=== PATIENT | male | born 1970 | race Caucasian/White ===

== ENCOUNTER 2016-08-20 16:16 | Outpatient (CLI) | payer MEDICARE ==
[~2016-08-20] VITALS: Ht 180.3 cm; Wt 158.2 kg
--- NOTE | ~2016-08-20 | HEMODYNAMI ---
PATIENT:ERA MILLER MEDICAL RECORD: [id number] : 66 [id number] ADMISSION DATE: 08/20/16 Generatedon:08/21/201616:48 Patient name: ERA MILLER Patient #: [id number] : 1970 Date of study: 08/21/2016 Page: Of Hemodynamic Procedure Report Patient Data Patient Demographics Procedure consent was obtained First Name: ERA Gender: Male Last Name: ANGELA : 1970 Patient #: [id number] Age: 46 year(s) Race: Unknown SSN: [id number] Additional ID: [id number] Contact details [address]: [address] [place] [address] State: [place] City: [place] Zip code: [address] Past Medical History Allergies: No known allergies Admission Admission Data Admission Date: 08/20/2016 Admission Time: 17:04 Arrival Date: 08/21/2016 Arrival Time: 0:00 Admit Source: Other Insurance Payor: Medicare Room #: D.2114 Height (in.): 70.87 BSA: 2.68 (m2) Height (cm.): 180 BMI: 49.56 (kg/m2) Weight (lbs.): 354 Weight (kg.): 160.57 Lab Results Lab Result Date: 08/21/2016 Lab Result Time: 0:00 Biochemistry Name Units Result Min Max BUN mg/dl 13 --(--*-)-- 7 18 Creatinine mg/dl 1.1 --(--*-)-- 0.6 1.3 CBC Name Units Result Min Max Hemoglobin g/dl 16.1 --(--*-)-- 13.5 17.5 Procedure Procedure Types Cath Procedure Diagnostic Procedure LHC LH w/Coronaries PCI Procedure Coronary Stent Initial Miscellaneous Procedures Moderate Sedation up to 30 minutes Procedure Description Procedure Date Procedure Date: 08/21/2016 Procedure Start Time: 16:29 Procedure End Time: 16:48 Procedure Staff Name Function Sloan Griffin MD Performing Physician Ozzy Franco RT Scrub Sharad Zhao RN Nurse Melody Post RT Monitor Claudette Christensen RT Monitor Procedure Data Cath Procedure Fluoroscopy Diagnostic fluoroscopy Total fluoroscopy Time: 2.4 time: 2.4 min min Diagnostic fluoroscopy Total fluoroscopy dose: 813 dose: 813 mGy mGy Contrast Material Contrast Material Type Amount (ml) Isovue 300 81 Entry Location Entry Primary Successful Side Size Upsize Upsize Entry Closure Venegas ccessful Closure Location (Fr) 1 (Fr) 2 (Fr) Remarks Device Remarks Femoral Right 5 Fr 6 Fr Mechanical artery Short Compression Estimated blood loss: 10 ml Diagnostic catheters Device Type Used For End Catheter Placement Cordis 5Fr Pigtail LV Angiography Catheter (MP) Cordis 5Fr JL 4.0 Left Coronary Catheter (MP) Angiography Cordis 5Fr 3DRC Catheter Right Coronary (MP) Angiography Procedure Complications No complications Procedure Medications Medication Administration Route Dosage Oxygen NC 2 l/min Lidocaine 2% added to field 20 Heparin Flush Bag added to field 2 bags (1000units/500ml NS) 0.9% NaCl I.V. 100 ml/hr Versed I.V. 1 mg Fentanyl I.V. 50 mcg Versed I.V. 1 mg Fentanyl I.V. 50 mcg Versed I.V. 1 mg Fentanyl I.V. 50 mcg Heparin Bolus I.V. 4000 units Versed I.V. 1 mg Fentanyl I.V. 50 mcg Plavix P.O. 75 mg Hemodynamics Rest BSA: 2.68 (m2) HGB: 16.1 (g/dl) O2 Consumption: Estimated: 320.26 (ml/min) O2 Co nsumption indexed: Estimated:119.5 (ml/min/m) Heart Rate: 68 (bpm) Snapshots Pre Cath Intra NCS Post Cath Vital Signs Time Heart Resp SPO2 NIBP Rhythm Pain Sedation Rate (ipm) (%) (mmHg) Status Level (bpm) 16:14:31 69 17 94 109/67(85) NSR 0 (11) 10(A) , No pain 16:18:50 67 17 94 109/62(82) NSR 0 (11) 10(A) , No pain 16:23:09 67 15 95 105/67(86) NSR 0 (11) 10(A) , No pain 16:27:27 67 16 96 105/55(84) NSR 0 (11) 9(A) , No pain 16:31:47 55 15 98 95/59(73) NSR 0 (11) 9(A) , No pain 16:36:01 68 16 96 99/63(81) NSR 0 (11) 9(A) , No pain 16:40:15 66 16 96 85/57(78) NSR 0 (11) 9(A) , No pain 16:44:29 66 15 95 91/48(75) NSR 0 (11) 10(A) , No pain Medications Time Medication Route Dose Verified Delivered Reason Notes Effectiveness by by 16:13:40 Oxygen NC 2 Sloan Buffie used for l/min Gaby Zhao RN procedure 16:13:47 Lidocaine 2% added 20ml Sloan Sloan for local to vial Gaby Grififn MD anesthetic field 16:13:54 Heparin Flush added 2 Sloan Sloan used for Bag to bags Gaby Griffin MD procedure (1000units/500ml field NS) 16:14:04 0.9% NaCl I.V. 100 Sloan Buffie Per physician ml/hr Gaby Zhao RN 16:24:28 Versed I.V. 1 mg Sloan Buffie for sedation Gaby Zhao RN 16:24:33 Fentanyl I.V. 50 Sloan Buffie for sedation mcg Gaby Zhao RN 16:28:45 Versed I.V. 1 mg Sloan Buffie for sedation Gaby Zhao RN 16:28:49 Fentanyl I.V. 50 Sloan Buffie for sedation mcg Gaby Zhao RN 16:32:07 Versed I.V. 1 mg Sloan Buffie for sedation Gaby Zhao RN 16:32:11 Fentanyl I.V. 50 Sloan Buffie for sedation mcg Gaby Zhao RN 16:36:34 Heparin Bolus I.V. 4000 Sloan Buffie for verifi ed units Gaby Zhao RN anticoagulation with dr griffin 16:40:42 Versed I.V. 1 mg Sloan Buffie for sedation Gaby Zhao RN 16:40:47 Fentanyl I.V. 50 Sloan Buffie for sedation mcg Gaby Zhao RN 16:45:18 Plavix P.O. 75 mg Sloan Buffie for Tauth MD Zhao RN antiplatelet therapy Procedure Log Time Note 15:48:03 Arrival Date: 08/21/2016 12:00:00 AM 15:48:05 Admit Source: Other 15:49:21 Lab Result : Creatinine 1.1 mg/dl 15:49:21 Lab Result : BUN 13 mg/dl 15:49:21 Lab Result : Hemoglobin 16.1 g/dl 15:49:30 Diagnostic Cath Status : Elective 15:50:00 Ozzy Franco RT(R) (CV) sent for patient. Start room use. 15:50:02 Time tracking: Regular hours 15:50:07 Plan of Care:Hemodynamics will remain stable., Cardiac rhythm will remain stable., Comfort level will be maintained., Respiratory function will remain adequate., Patient/ family verbilizes understanding of procedure., Procedure tolerated without complication., Recovers from procedure without complications.. 15:50:17 Patient received from Med II to CCL 2 Alert and oriented. Tansferred to table in Supine position. 15:50:35 H&P Date Dictated: 08/20/2016 Within 30 days and on chart.. 15:51:56 Patient Height : 180 inches 15:52:15 Patient Weight : 160.57 lbs 15:52:15 Insurance Payor : Medicare 16:00:01 Warm blankets applied, and mark hugger turned on for patient comfort. 16:00:02 Correct patient and procedure confirmed by team. 16:00:05 Signed procedure consent form obtained from patient. 16:00:10 Pre-procedure instructions explained to patient. 16:00:23 Family in patients room. 16:00:26 Patient NPO since Midnight. 16:00:55 Patient allergic to No known allergies 16:00:58 Is the patient allergic to Iodine/contrast media? No. 16:01:06 Is patient on blood thinner?Yes 16:01:09 ACC The patient was administered the following blood thiners within the last 24 hours: ACCPlavix 16:01:13 Patient diabetic? Yes. 16:01:15 If diabetic: On Metformin? No 16:01:19 Snore? Yes 16:01:35 Sleep apnea? Yes 16:01:47 Dentures? Yes iout 16:02:02 Patient pain scale 0/10 ?. 16:02:14 IV patent on arrival in right hand with 0.9% NaCl at KVO. 16:02:22 Lab results completed and on chart. 16:02:27 Right Radial & Right Groin area was prepped with chlora-prep and draped in sterile fashion 16::29 Alarms reviewed by R. N. 16:02:29 Sharps counted by scrub and verified by R.N. 16:03:08 Physician arrived 16:07:25 ECG and BP/O2 sat monitors applied to patient. 16:07:29 Vital chart was started 16:07:30 Baseline sample Acquired. 16:07:38 Rhythm: sinus rhythm 16:07:39 Full Disclosure recording started 16:13:40 Oxygen 2 l/min NC was given by Sharad Zhao RN; used for procedure; 16:13:47 Lidocaine 2% 20ml vial added to field was given by Sloan Griffin MD; for local anesthetic; 16:13:54 Heparin Flush Bag (1000units/500ml NS) 2 bags added to field was given by Sloan Griffin MD; used for procedure; 16:14:04 0.9% NaCl 100 ml/hr I.V. was given by Sharad Zhao RN; Per physician; 16:15:45 Use device set Femoral Dx 16:15:46 Acist Syringe opened to sterile field. 16:15:46 Bag Decanter opened to sterile field. 16:15:47 Medline Cath Pack opened to sterile field. 16:15:47 Terumo 5Fr Rittman Sheath opened to sterile field. 16:15:48 St Sotero 260cm J .035 wire opened to sterile field. 16:15:49 Acist Hand Control opened to sterile field. 16:15:49 Acist Manifold opened to sterile field. 16:15:50 Diagnostic Infinity 5Fr Multipack catheter opened to sterile field. 16:15:50 Tegaderm 4 x 4 opened to sterile field. 16:16:09 Previous problem with sedation/anesthesia? No ? 16:16:11 Deviated septum? No 16:16:11 Opens mouth fully? Yes 16:16:12 Sticks out tongue? Yes 16:16:14 Airway obstruction? No ? 16:16:17 Pre procedure: right dorsailis pedis pulse 2+ Normal; easily identifiable; not easily obliterated 16:16:57 Melody Post RT(R) was relieved by Claudette Christensen RT(R) as monitoring person 16:20:47 Zero performed for pressure channel P1 16:22:04 Zero performed for pressure channel P1 16:22:58 Zero performed for pressure channel P1 16:23:53 Final Timeout: patient, procedure, and site verified with staff and physician. All members of the team are in agreement. 16:23:55 Right groin site verified by team. 16:23:59 Physical assessment completed. ASA score P 2 - A patient with mild systemic disease as per Sloan Griffin MD. 16:24:02 Sedation plan: IV Moderate Sedation Versed, Fentanyl 16:24:28 Versed 1 mg I.V. was given by Sharad Zhao RN; for sedation; 16:24:33 Fentanyl 50 mcg I.V. was given by Sharad Zhao RN; for sedation; 16:28:45 Versed 1 mg I.V. was given by Sharad Zhao RN; for sedation; 16:28:49 Fentanyl 50 mcg I.V. was given by Sharad Zhao RN; for sedation; 16:29:29 Procedure started. 16:29:32 Local anesthetic to right femoral artery with Lidocaine 2% by Sloan Griffin MD.INITIAL ACCESS ONLY 16:32:07 Versed 1 mg I.V. was given by Sharad Zhao RN; for sedation; 16:32:11 Fentanyl 50 mcg I.V. was given by Sharad Zhao RN; for sedation; 16:33:00 A 5 Fr sheath was inserted into the Right Femoral artery 16:33:38 A Cordis 5Fr Pigtail Catheter (MP) was advanced over the wire and used for LV Angiography. 16:33:52 LV gram done using HOFF 16:34:01 EF : 50 % 16:34:05 Injector settings: Ml/sec: 5, Volume: 15, 16:34:06 Catheter removed. 16:34:48 A Cordis 5Fr JL 4.0 Catheter (MP) was advanced over the wire and used for Left Coronary Angiography. 16:35:04 TuckerNuck BasixCompak Inflation Kit opened to sterile field. 16:35:05 Mckeon Whisper J 300cm 0.014 guide wire opened to sterile field. 16:35:11 Terumo 6Fr Rittman Sheath opened to sterile field. 16:35:24 Catheter removed. 16:35:29 A Cordis 5Fr 3DRC Catheter (MP) was advanced over the wire and used for Right Coronary Angiography. 16:36:34 Heparin Bolus 4000 units I.V. was given by Sharad Zhao RN; for anticoagulation; verified with dr grfifin 16:36:35 Catheter removed. 16:36:51 Medtronic Launcher 6Fr HS II guide catheter opened to sterile field. 16:37:12 Sheath upsized to a 6 Fr Short. 16:38:49 6 Fr HS II guide catheter was inserted over the wire 16:39:39 Whisper wire advanced. 16:40:24 Inflation Number: 1 A Medtronic Integrity 3.5 X 18 stent was prepped and advanced across the Mid RCA. The stent was deployed at 17 VICTORIA for 0:07 (min:sec). 16:40:31 Stent catheter was removed intact over wire. 16:40:32 Wire removed. 16:40:32 Guide catheter removed. 16:40:35 Sheath removed intact; hemostasis achieved with Mechanical Compression to the Right Femoral artery. 16:40:41 Procedure ended.(Physican Out) 16:40:42 Versed 1 mg I.V. was given by Sharad Zhao RN; for sedation; 16:40:47 Fentanyl 50 mcg I.V. was given by Sharad Zhao RN; for sedation; 16:40:53 Fluoroscopy time 02.40 minutes. 16:40:57 Fluoroscopy dose: 813 mGy 16:40:57 Flurop Dose total: 813 16:41:00 Contrast amount:Isovue 300 81ml. 16:41:02 Sharps counted by scrub and verified by R.N. 16:41:03 Insertion/operative site no bleeding no hematoma. 16:42:14 Post right femoral artery:bleeding 16:42:16 Post Procedure Pulses reassessed and unchanged 16:42:22 Post-procedure physical assessment completed. ASA score P 2 - A patient with mild systemic disease as per Sloan Griffin MD. 16:42:24 Post procedure rhythm: unchanged. 16:42:27 Estimated blood loss: 10 ml 16:42:28 Post procedure instruction explained to patient.Patient verbalizes understanding. 16:42:29 Patient needs reinforcement of post procedure teaching. 16:42:47 Procedure type changed to Cath procedure, Diagnostic procedure, LHC, LHC w/Coronaries, PCI procedure, Coronary Stent Initial, Miscellaneous Procedures, Moderate Sedation up to 30 minutes 16:43:05 Procedure Complication : No complications 16:43:36 Femstop placed over the right femoral artery at 125 mmHg. Hemostasis achieved. 16:43:40 See physician's report for complete and final results. 16:43:51 St Sotero Femstop Arch Gold opened to sterile field. 16:45:18 Plavix 75 mg P.O. was given by Sharad Zhao RN; for antiplatelet therapy; 16:45:32 Vascade 6/7 Fr Closure Device opened to sterile field. 16:46:00 Procedure and supply charges have been captured, reviewed, submitted and are correct. 16:48:12 Vital chart was stopped 16:48:14 Report given to PCU. 16:48:22 Patient transfered to PCU with Bed. 16:48:29 Procedure ended. 16:48:29 Full Disclosure recording stopped 16:48:38 End room use (Document Last) Intervention Summary Intervention Notes Time ActionType Lesion and Equipment Action# Pressure Duration Attributes Used 16:40:24 Place stent Mid RCA Medtronic 1 17 00:08 Integrity 3.5 X 18 stent Device Usage Item Name Manufacture Quantity Catalog Hospital Part Current Minima l Lot# / Number Charge Number Stock Stock Serial# Code Acist Acist 1 10541 112987 969820 723428 20 Syringe Medical Systems Inc Bag Microtek 1 2002S 978748 99713 943749 5 MojoPages Inc. Medline Cardinal 1 [id number] 927068 69445 729354 5 Cath Pack Health Terumo 5Fr Terumo 1 IIO859 429271 323334 629233 [address] St Sotero 1 115734 646479 304812 590809 30 260cm J .035 wire Acist Hand Acist 1 43497 525392 084493 997186 5 Control Medical Systems Inc Acist Acist 1 11200 837203 635130 370635 5 Coshared Medical Systems Inc Diagnostic Cardinal 1 QR9412 919145 48705 799852 30 Infinity Health 5Fr Multipack catheter Tegaderm 4 3M 1 1626W 325402 557216 453317 5 x 4 Cordis 5Fr Cardinal 1 539130 5 Pigtail Health Catheter (MP) Cordis 5Fr Cardinal 1 547930 5 JL 4.0 Health Catheter (MP) Merit Merit 1 GL5833 439018 625593 452735 15 BasixCompak Medical Inflation Kit Mckeon Mckeon 1 [id number] 047170 283329 540767 5 Whisper J Vascular 300cm 0.014 guide wire Terumo 6Fr Terumo 1 [id number] 934841 063668 847291 40 Rittman Sheath Cordis 5Fr Cardinal 1 883920 5 3DRC Health Catheter (MP) Medtronic Medtronic 1 [id number] 656208 19835 810783 1 Launcher 6Fr HS II guide catheter Medtronic Medtronic 1 [id number] 202862 416777 9 [id number] Integrity 3.[address] Sotero 1 [id number] 264428 645729 066138 5 Femstop Arch Gold Vascade 11/25 Cardiva 1 [id number] 257306 264901 959466 5 Fr Closure Medical, Device Inc. Signature Audit [place] Stage Time Signature Unsigned Intra-Procedure 08/21/2016 Claudette 4:48:53 PM Counts RT(R) Signatures Monitor : Melody Post Signature : RT Date : Time : Monitor : Claudette Signature : Counts RT Date : Time : [place] [id number] [place] [address]
[2016-08-20 16:12] LABS: BASOPHILS 0.6 % (0.0-2.0); EOSINOPHILS 0.7 % (0-7); HEMATOCRIT 45.6 % (42.0-54.0); HEMOGLOBIN 16.1 g/dL (13.5-17.5); IMMATURE GRANULOCYTES 1.9 % (0-5); LYMPHOCYTES 19.2 % (15-50); MCH 30.7 pg (26.0-34.0); MCHC 35.3 g/dL (31.0-37.0); MEAN PLATELET VOLUME 10.7 fL (7.4-10.4); MONOCYTES 5.7 % (2-11); NEUTROPHILS 71.9 % (40-80); RBC 5.24 10x6/uL (4.20-6.10); RDW 12.9 % (11.5-14.5); WBC 9.7 10x3/uL (4.8-10.8)
[2016-08-20 16:13] LABS: PLATELET COUNT 180 10x3/uL (130-400)
[2016-08-20 16:47] LABS: ALBUMIN 4.1 g/dL (3.4-5.0); ALKALINE PHOSPHATASE 98 U/L (46-116); ALT (SGPT) 73 U/L (10-68); BILIRUBIN - TOTAL 0.68 mg/dL (0.2-1.3); CALC OSMOLALITY 292 mosm/kg (275-300); CALCIUM 8.5 mg/dL (8.5-10.1); CARBON DIOXIDE 24.8 mmol/L (21.0-32.0); CHLORIDE - SERUM 101 mmol/L (98-107); CHOL - HDL RATIO 6.4 ratio (2.3-4.9); CHOLESTEROL, TOTAL 235 mg/dL (0-200); CKMB 1.6 U/L (0.0-3.6); CREATINE KINASE 175 UL (21-232); CREATININE - SERUM 1.1 mg/dL (0.6-1.3); HDL CHOLESTEROL 37 mg/dL (32-96); LDL CHOLESTEROL 148 mg/dL (0-100); POTASSIUM - SERUM 4.3 mmol/L (3.5-5.1); PROTEIN - SERUM 8.1 g/dL (6.4-8.2); SODIUM 138 mmol/L (136-145); TRIGLYCERIDE 254 mg/dL (30-200); UREA NITROGEN 13 mg/dL (7-18); eGFR NON AFRICAN AMERICAN 76 mL/min (90-120)
[2016-08-20 16:50] LABS: GLUCOSE 402 mg/dL (74-106)
[2016-08-20 16:51] LABS: TROPONIN-I 0.073 ng/mL (0.000-0.060)
--- NOTE | 2016-08-20 17:53 | NUR ---
TRANSFER FROM ER BY W/C. ALTAGRACIAINTED TO ROOM. CALL LIGHT IN REACH. WILL CONT. PLAN OF CARE.
[2016-08-20 18:06] VITALS: BP 157/83; BMI 49.6
--- NOTE | 2016-08-20 18:21 | NUR ---
CONSENTS SIGNED FOR [facility].
--- NOTE | 2016-08-20 19:49 | NUR ---
RESUMED CARE OF PT, LYING IN BED RESPIRATIONS EVEN AND UNLABORED. PLACED O2 ON @ 2LPM VIA NC. 71 SR ON TELEMETRY. COMPLAINS OF CP 5:10, MORPHINE 4MG IVP TO RIGHT HAND. CALL LIGHT IN REACH. WILL CONTINUE TO MONITOR, PLAN OF CARE DISCUSSED.
[2016-08-20 20:00] VITALS: BP 143/72
--- NOTE | 2016-08-20 22:21 | NUR ---
UP TO SHOWER.
[2016-08-21] VITALS (7 sets, daily range): BP systolic 125–145; BP diastolic 59–81; Ht 180.3 cm; Wt 158.2 kg
--- NOTE | 2016-08-21 03:32 | NUR ---
BUSINESS PARTNER AT BEDSIDE TO OBTAIN VITALS, CALL LIGHT IN REACH. WILL CONTINUE WITH PLAN OF CARE.
--- NOTE | 2016-08-21 07:15 | NUR ---
ASSESSMENT COMPLETED. DENIES ANY NEEDS. TELEMERTY SHOWS SR 64. 02 @ 2 l/m per AK. NPO FOR CATHPatti NASCIMENTO
--- NOTE | 2016-08-21 07:33 | NUR ---
AAOX4 RESP UNLABORED NAD NOTED PT DENIES ANY NEEDS OR DISCOMFORT
--- NOTE | 2016-08-21 12:19 | NUR ---
UP ON SIDE OF BED FOR DIET. WILL BE NPO AFTER LUNCH
[2016-08-21 15:25] LABS: HEMOGLOBIN A1C 10.6 % (4.8-6.0)
--- NOTE | 2016-08-21 16:03 | NUR ---
Patient Name: ERA MILLER Encounter No: [id number] : 1970 Primary Insurance: MEDICARE A & B Anticipated DC Date: Planned Disposition: HOME DCP follow-up note: CM MET WITH PT, PROVIDED AND DISCUSSED MEDICARE OUTPATIENT OBSERVATION NOTICE. CM TO FOLLOW AND ASSIST IF NEEDED. Carlos Johnson, CASE MANAGEMENT
--- NOTE | 2016-08-21 16:15 | NUR ---
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 TELEMERTY SHOWS SR. V/S STABLE. RIGHT GROIN SOFT WITH FEM STOP IN PLACE. PPP. DENIES ANY NEEDS. CALL LIGHT IN REACH WITH SIDE RAILS UP. WILL MONITOR
--- NOTE | 2016-08-21 17:52 | NUR ---
LYING QUIETLY. RIGHT GROIN WITH FEM STOP INTACT. PPP. V/S STABLE. WILL MONITOR
[2016-08-22 00:15] VITALS: BP 103/5
--- NOTE | 2016-08-22 01:02 | NUR ---
PT RESTING WELL WITHOUT C/O OR DISTRESS NOTED. EYES CLOSED AND RESP EVEN AND UNLABORED. CALL LIGHT WITHIN REACH. WILL CONTINUE TO MONITOR.
[2016-08-22 04:30] VITALS: BP 128/66
[2016-08-22 05:45] LABS: BASOPHILS 0.5 % (0.0-2.0); EOSINOPHILS 2.1 % (0-7); HEMATOCRIT 42.4 % (42.0-54.0); HEMOGLOBIN 14.6 g/dL (13.5-17.5); IMMATURE GRANULOCYTES 1.2 % (0-5); LYMPHOCYTES 30.8 % (15-50); MCH 30.1 pg (26.0-34.0); MCHC 34.4 g/dL (31.0-37.0); MCV 87.4 fL (80.0-100.0); MEAN PLATELET VOLUME 10.7 fL (7.4-10.4); NEUTROPHILS 57.4 % (40-80); PLATELET COUNT 154 10x3/uL (130-400); RBC 4.85 10x6/uL (4.20-6.10); RDW 12.9 % (11.5-14.5); WBC 9.6 10x3/uL (4.8-10.8)
[2016-08-22 06:40] LABS: ALBUMIN 3.2 g/dL (3.4-5.0); ALKALINE PHOSPHATASE 65 U/L (46-116); CALCIUM 8.5 mg/dL (8.5-10.1); CARBON DIOXIDE 23.9 mmol/L (21.0-32.0); CHLORIDE - SERUM 98 mmol/L (98-107); PROTEIN - SERUM 6.7 g/dL (6.4-8.2); SODIUM 132 mmol/L (136-145); UREA NITROGEN 13 mg/dL (7-18)
[2016-08-22 06:54] LABS: ALT (SGPT) 50 U/L (10-68); CALC OSMOLALITY 270 mosm/kg (275-300); CREATININE - SERUM 0.8 mg/dL (0.6-1.3); GLUCOSE 199 mg/dL (74-106); eGFR NON AFRICAN AMERICAN > 90 mL/min (90-120)
[2016-08-22 07:55] VITALS: BP 118/66
--- NOTE | 2016-08-22 09:49 | NUR ---
TELEMETRY SR. RESTS IN BED WITH EYES CLOSED. CALL LIGHT IN REACH. WILL CONT. PLAN OF CARE.
[2016-08-22] MEDS ORDERED: PLAVIX75 MG PO (11:46)
[2016-08-22 11:47] VITALS: BP 129/81
--- NOTE | 2016-08-22 12:21 | NUR ---
IV AND TELEMETRY DCD. DC PLANS GIVEN. UNDERSTANDING VOICED. ESCORTED TO CAR BY W/C.
--- NOTE | 2016-08-31 10:08 | OP ---
PATIENT NAME: ERA MILLER MEDICAL RECORD: [id number] :[birth year] LOCATION:D.CAT ADMISSION DATE: SURGEON: MIHIR HERNANDES MD DATE OF OPERATION: 08/21/2016 PROCEDURES: 1. PTCA stent, RCA. 2. Left heart catheterization. 3. Selective coronary angiography. 4. Left ventriculogram. INDICATIONS: Angina and coronary artery disease. PROCEDURE IN DETAIL: After informed consent was obtained and after a detailed explanation of risks, benefits as well as alternative therapies, the patient elected to proceed with angiogram and angioplasty. The right femoral area was prepped and draped in normal sterile fashion. Right femoral artery was cannulated via modified Seldinger technique with placement of 6-Maltese sheath. All catheters exchanged through this sheath. FINDINGS: The left ventriculogram was performed in the standard 30-degree HOFF view, reveals good cardiac wall motion throughout all segments. Overall ejection fraction estimated at 60%. SELECTIVE CORONARY ANGIOGRAPHY: 1. Left main is with no significant angiographic disease. 2. Left anterior descending has allm-sg-dujniiil irregularities, but no flow-limiting stenosis. 3. Left circumflex has rtpd-ls-dfogsffk irregularities, but no flow-limiting stenosis. 4. Right coronary has an 80 plus percent stenosis proximally. PTCA STENT OF THE RIGHT CORONARY: The stent used is a 3.5 x 18 mm Integrity. Result was 0% residual stenosis. OVERALL IMPRESSION: Successful percutaneous transluminal coronary angioplasty stent of the right coronary artery going from 80% initial stenosis to 0% residual. TRANSINT:[id number] Voice Confirmation ID: [id number] DOCUMENT ID: [id number] MIHIR HERNANDES MD at 1008 CC: [id number] DICTATION DATE: 08/21/16 1647 MEAT CUTTER: 08/21/16 2243 DEP CLI 08/22/16 [place] [address]
--- NOTE | 2016-08-31 10:08 | HP ---
PATIENT: ERA MILLER MEDICAL RECORD: [id number] ACCOUNT: [id number] LOCATION:[facility] : [birth year] ADMISSION DATE: 08/20/16 HISTORY AND PHYSICAL EXAMINATION DIAGNOSES: 1. Unstable angina. 2. Abnormal ECG. 3. Hypertension. HISTORY OF PRESENT ILLNESS: This is a gentleman with no previous cardiac history presents with chest pain started today. His EKG has ST-T abnormalities, especially inferiorly, but no ST elevation. He continues to have chest pain at a 5/10. His systolic blood pressures in the 200 range, hear heart is 90s. PHYSICAL EXAMINATION: GENERAL APPEARANCE: Well-nourished, well-developed, appears stated age. Level of distress, comfortable. PSYCHIATRIC: Mental status, alert, normal affect. Orientation, oriented to time, place and person. EYES: Lids and conjunctiva, noninjected. No discharge, no pallor. ENT: Lips, teeth, gums, normal dentition. Oropharynx, no cyanosis, no pallor. NECK: Carotid arteries, bilateral normal upstroke, no bruits, no thrills. JUGULAR VEINS: No jugular venous pressure or distention. CERVICAL LYMPH NODES: Nontender, nonenlarged. THYROID: Not enlarged. Nontender. No nodules. LUNGS: Respiratory effort, unlabored. CHEST: Normal curvature. No thoracic deformity. No chest wall tenderness. Percussion, resonant. Auscultation, clear. No wheezes, no rales, no rhonchi. CARDIOVASCULAR: Precordial exam, nondisplaced. No heaves or pericardial thrills. Rate and rhythm, regular. Heart sounds, normal S1, normal S2. No S3, no gallop, no rub. Systolic murmur, not heard. Diastolic murmur, not heard. EXTREMITIES: No cyanosis, no edema. Peripheral pulses, full and equal in all extremities, except as noted. No bruits appreciated. ABDOMEN: Soft, nondistended. Normal aorta. No bruit. Nontender. No masses. Liver, nontender, no hepatomegaly. Spleen, nontender, no splenomegaly. MUSCULOSKELETAL: No joint tenderness. No joint swelling. No erythema. NEUROLOGICAL: Normal gait, normal strength, normal tone. SKIN: Warm and dry. REVIEW OF SYSTEMS: The patient reports easy bruising but reports no swollen glands. The patient reports no fever, no night sweats, no significant weight gain, no significant weight loss. No significant exercise tolerance. The patient reports no dry eyes, no irritation, no vision change. Patient reports no difficulty hearing and no ear pain. Patient reports no frequent nose bleeds or nose and sinus problems. Patient reports on arm pain on exertion. No shortness of breath while lying down. No history of heart murmur. Patient reports no cough, no wheezing or coughing up blood. Patient reports no abdominal pain, no vomiting. Normal appetite. No diarrhea and not vomiting blood. No nausea and no constipation. Patient reports no incontinence. No difficulty urinating. No hematuria. No increased frequency. Patient reports no muscle aches. No weakness, no arthralgias, no back pain. No swelling of the extremities. Patient reports no abnormal mole, no jaundice, no rashes. Reports no loss of consciousness. No weakness and no numbness. No seizures, dizziness, or headaches. The patient reports no depression, no sleep disturbance, feeling HISTORY AND PHYSICAL [id number] ERA MILLER safe in a relationship and no alcohol abuse. Patient reports on fatigue. Reports no runny nose or sinus pressure. No itching, no hives, and no frequent sneezing. OVERALL IMPRESSION: Unstable angina with accelerated hypertension. We will start lisinopril, Lopressor and IV labetalol for the hypertension, give nitro patch, give aspirin, Plavix and proceed with coronary angiography in the a.m. Further care depends upon findings of the angiography. TRANSINT:[id number] Voice Confirmation ID: [id number] DOCUMENT ID: [id number] MIHIR HERNANDES MD at 1008 CC: [id number] DICTATION DATE: 08/20/16 1614 ART GLASS SETTER: 08/20/16 1817 DEP CLI 08/22/16 [place] [id number]
--- NOTE | 2016-09-17 08:41 | DS ---
PATIENT:ERA MILLER :[birth year] MEDICAL RECORD: [id number] DISCHARGE SUMMARY ADMISSION DATE: 08/20/16 DISCHARGE DATE: 08/22/16 DISCHARGE DIAGNOSES: 1. Angina. 2. Coronary artery disease. 3. Percutaneous transluminal coronary angioplasty stent right coronary artery this admission. HOSPITAL COURSE: Mr. Miller presents with anginal symptomatology, found to have single vessel disease to the RCA, underwent successful PTCA stent of the RCA. He was discharged home with the addition of aspirin and Plavix to his medical regimen. He will follow up with [facility] in 1 month. TRANSINT:[id number] Voice Confirmation ID: [id number] DOCUMENT ID: [id number] MIHIR HERNANDES MD at 0841 CC: [id number] DICTATION DATE: 09/15/16 1448 ROBOTICS TECHNICIAN: 09/16/16 0255 DEP CLI 08/22/16 [place] [id number] [place] [address]
== END 2016-08-22 12:25 | disposition home or self-care (01) ==
LOC: OBSVTIME → D.CATH 16:16 → OBSVTIME 17:04 → D.M2 17:04 → D.ER 17:04 → EDSTATUS 08-21 08:30 → D.M2 08-22 12:25 → D.CATH 08-22 12:25 → D.M2 08-22 12:25
PROVIDERS: Emergency Medicine
DX: I25.110 Atherosclerotic heart disease of native coronary artery with unstable angina pectoris (principal); I10 Essential (primary) hypertension; R94.31 Abnormal electrocardiogram [ECG] [EKG]; E11.65 Type 2 diabetes mellitus with hyperglycemia

== ENCOUNTER 2017-02-23 14:53 | Inpatient (IN) | payer MEDICARE ==
[~2017-02-23] VITALS: Ht 180.3 cm; Wt 159.7 kg
--- NOTE | ~2017-02-23 | CN ---
PATIENT NAME:ERA MILLER MEDICAL RECORD: [id number] : 66 LOCATION:[facility] D.2116 ADMIT DATE: 02/23/17 ACCOUNT: [id number] CONSULTING PHYSICIAN: ELLY PROCTOR MD REFERRING PHYSICIAN: XAVIER RENAE MD DATE OF CONSULTATION: 02/24/2017 HISTORY OF PRESENT ILLNESS: A 46-year-old gentleman with a history of coronary artery disease, status post stenting in August of this year, awoke yesterday with left facial tingling, numbness, reports some facial droop, perhaps some mild dysarthria, felt it might be migrating when asleep, woke up and had the left-sided weakness involving the upper and lower extremity. He has a history of stenting in the past as described above, has been angina-free since the time of stent, staying quite active. Cardiac enzymes are negative at this point. We are asked to see him concerning his cardiovascular status. PAST MEDICAL HISTORY: 1. History of coronary artery disease. 2. Hyperglycemia. 3. Obesity. MEDICATIONS: Plavix 75 q. day, aspirin 81 q. day. ALLERGIES: None known. SOCIAL HISTORY: Works fulltime. He is a nonsmoker, nondrinker. He takes care of all his ADLs. REVIEW OF SYSTEMS: The patient reports easy bruising but reports no swollen glands. The patient reports no fever, no night sweats, no significant weight gain, no significant weight loss. No significant exercise tolerance. The patient reports no dry eyes, no irritation, no vision change. Patient reports no difficulty hearing and no ear pain. Patient reports no frequent nose bleeds or nose and sinus problems. Patient reports on arm pain on exertion. No shortness of breath while lying down. No history of heart murmur. Patient reports no cough, no wheezing or coughing up blood. Patient reports no abdominal pain, no vomiting. Normal appetite. No diarrhea and not vomiting blood. No nausea and no constipation. Patient reports no incontinence. No difficulty urinating. No hematuria. No increased frequency. Patient reports no muscle aches. No weakness, no arthralgias, no back pain. No swelling of the extremities. Patient reports no abnormal mole, no jaundice, no rashes. Reports no loss of consciousness. No weakness and no numbness. No seizures, dizziness, or headaches. The patient reports no depression, no sleep disturbance, feeling safe in a relationship and no alcohol abuse. Patient reports on fatigue. Reports no runny nose or sinus pressure. No itching, no hives, and no frequent sneezing. PHYSICAL EXAMINATION: GENERAL: Pleasant gentleman, in no acute distress. VITAL SIGNS: Blood pressure 127/79, pulse 69 and regular. HEENT: Normocephalic, atraumatic. NECK: No bruits are noted. HEART: Regular, I-II/ systolic ejection murmur. LUNGS: Good air excursion. ABDOMEN: Soft, nontender. CONSULT REPORT [id number] ERA MILLER EXTREMITIES: Pulses are 2+. There is no edema. NEUROLOGIC: Grossly intact. DIAGNOSTIC DATA: ECG without acute changes. Enzymes are negative. IMPRESSION: Chest pain, associated with upper extremity numbness and tingling, weakness. Enzymes are negative. At this point, I agree with echocardiographic study, doubt acute coronary syndrome. Agree with other workup. TRANSINT:[id number] Voice Confirmation ID: [id number] DOCUMENT ID: [id number] ELLY PROCTOR MD CC: [id number] DICTATION DATE: 02/24/17740 MANAGER RENEWABLE ENERGY: 02/24/17901 ADM IN [facility] [address] [place] [address]
[~2017-02-23 14:53] MED LIST: PLAVIX75 MG PO
[2017-02-23 15:26] LABS: BASOPHILS 0.3 % (0-2); EOSINOPHILS 2.6 % (0-7); HEMATOCRIT 42.6 % (42.0-54.0); IMMATURE GRANULOCYTES 1.5 % (0-5); LYMPHOCYTES 24.8 % (15-50); MCHC 35.2 g/dL (31.0-37.0); MEAN PLATELET VOLUME 10.4 fL (7.4-10.4); MONOCYTES 7.8 % (2-11); RBC 4.84 10x6/uL (4.20-6.10); RDW 12.9 % (11.5-14.5); WBC 11.6 10x3/uL (4.8-10.8)
[2017-02-23 15:34] LABS: PLATELET COUNT 195 10x3/uL (130-400)
[2017-02-23 15:46] LABS: ALBUMIN 3.6 g/dL (3.4-5.0); ALKALINE PHOSPHATASE 67 U/L (46-116); ALT (SGPT) 30 U/L (10-68); CALC OSMOLALITY 281 mosm/kg (275-300); CALCIUM 9.1 mg/dL (8.5-10.1); CARBON DIOXIDE 24.8 mmol/L (21.0-32.0); CHLORIDE - SERUM 105 mmol/L (98-107); CREATININE - SERUM 0.8 mg/dL (0.6-1.3); POTASSIUM - SERUM 4.1 mmol/L (3.5-5.1); PROTEIN - SERUM 7.1 g/dL (6.4-8.2); SODIUM 140 mmol/L (136-145); UREA NITROGEN 15 mg/dL (7-18); eGFR NON AFRICAN AMERICAN > 90 mL/min (90-120)
[2017-02-23 15:53] LABS: GLUCOSE 141 mg/dL (74-106)
[2017-02-23 15:57] LABS: CHOL - HDL RATIO 4.2 ratio (2.3-4.9); CHOLESTEROL, TOTAL 174 mg/dL (0-200); CKMB 2.2 U/L (0.0-3.6); CREATINE KINASE 117 UL (21-232); HDL CHOLESTEROL 41 mg/dL (32-96); LDL CHOLESTEROL 107 mg/dL (0-100); LDL-HDL RATIO 2.6 ratio (1.5-3.5); TRIGLYCERIDE 134 mg/dL (30-200); TROPONIN-I < 0.017 ng/mL (0.000-0.060)
--- NOTE | 2017-02-23 18:50 | NUR ---
PT UNABLE TO DO MRI DUE TO BODY HABITUS.
[2017-02-23 19:00] VITALS: BP 150/84
[2017-02-23 19:44] LABS: CREATINE KINASE 115 UL (21-232); TROPONIN-I < 0.017 ng/mL (0.000-0.060)
--- NOTE | 2017-02-23 21:44 | NUR ---
ULTRASOUND OF CAROTIDS COMPLETED. PT ASKING FOR PAIN MED FOR HEADACHE. NO PAIN MEDS ORDERED BY ER . PAGE OUT TO YOLANDA ODELL APN FOR ORDERS.
--- NOTE | 2017-02-23 22:24 | NUR ---
RETURN CALL FROM YOLANDA ODELL APN. REVIEWED PT'S C/O HEADACHE AND NOT TIGHTNESS IN HIS CHEST. NEW ORDERS RECEIVED.
--- NOTE | 2017-02-23 22:45 | NUR ---
PT WAS MEDICATED WITH MORPHINE 1MG SIVP PER L.RUIZ CONSTRUCTION IRONWORKER HELPER FOR HEADACHE AND BEGINNING CHEST PRESSURE. IV LOCATED IN RFA. SIDERAILS UP X 2 AND CALL LIGHT IN REACH.
--- NOTE | 2017-02-23 23:04 | NUR ---
PT HAS MADE CONTACT WITH THE RADIO TIME SALES SUPERVISOR AND REQUESTED A NEW NURSE. HE DOES NOT FEEL THIS NURSE HAS MET HIS NEEDS. CARE WILL NOW BE PROVIDED TO PATIENT BY KARTHIK PHAM.
[2017-02-23 23:37] LABS: CKMB 1.7 U/L (0.0-3.6); CREATINE KINASE 112 UL (21-232); TROPONIN-I < 0.017 ng/mL (0.000-0.060)
[2017-02-24 00:46] VITALS: BP 138/94
--- NOTE | 2017-02-24 04:03 | NUR ---
PT ON LIGHT WITH C/O HEADACHE AND "FUNNY TASTE" IN MOUTH. REQUESTING PAIN MEDICATION. MEDICATED WITH MORPHINE SIVP BY SUMIT PHAM @ 0326. PT BACK ON LIGHT AGAIN. LIGHT ANSWERED BY PIOTR ORELLANA. PT WANTING SNACKS. SNACKS DELIVERED TO PATIENT. NO OTHER NEEDS AT THIS TIME.
[2017-02-24 04:26] VITALS: BP 150/84; BMI 49.2
[2017-02-24 05:12] VITALS: BP 127/79
[2017-02-24 05:35] LABS: BASOPHILS 0.5 % (0-2); EOSINOPHILS 3.2 % (0-7); HEMATOCRIT 41.2 % (42.0-54.0); HEMOGLOBIN 14.3 g/dL (13.5-17.5); IMMATURE GRANULOCYTES 1.5 % (0-5); LYMPHOCYTES 35.1 % (15-50); MCH 30.7 pg (26.0-34.0); MCHC 34.7 g/dL (31.0-37.0); MCV 88.4 fL (80.0-100.0); MEAN PLATELET VOLUME 10.7 fL (7.4-10.4); MONOCYTES 6.1 % (2-11); NEUTROPHILS 53.6 % (40-80); PLATELET COUNT 187 10x3/uL (130-400); RBC 4.66 10x6/uL (4.20-6.10); RDW 13.1 % (11.5-14.5); WBC 10.7 10x3/uL (4.8-10.8)
[2017-02-24 06:44] LABS: ALBUMIN 3.2 g/dL (3.4-5.0); ALKALINE PHOSPHATASE 61 U/L (46-116); ALT (SGPT) 29 U/L (10-68); BILIRUBIN - TOTAL 0.38 mg/dL (0.2-1.3); CALC OSMOLALITY 279 mosm/kg (275-300); CARBON DIOXIDE 28.4 mmol/L (21.0-32.0); CHLORIDE - SERUM 100 mmol/L (98-107); CHOL - HDL RATIO 4.7 ratio (2.3-4.9); CHOLESTEROL, TOTAL 163 mg/dL (0-200); CREATINE KINASE 108 UL (21-232); GLUCOSE 185 mg/dL (74-106); HDL CHOLESTEROL 35 mg/dL (32-96); LDL CHOLESTEROL 100 mg/dL (0-100); LDL-HDL RATIO 2.9 ratio (1.5-3.5); PROTEIN - SERUM 6.7 g/dL (6.4-8.2); SODIUM 137 mmol/L (136-145); TRIGLYCERIDE 140 mg/dL (30-200); UREA NITROGEN 16 mg/dL (7-18)
[2017-02-24 06:48] LABS: CREATININE - SERUM 1.1 mg/dL (0.6-1.3); TROPONIN-I < 0.017 ng/mL (0.000-0.060); eGFR NON AFRICAN AMERICAN 76 mL/min (90-120)
[2017-02-24 08:14] VITALS: BP 134/82
[2017-02-24 10:03] VITALS: Ht 180.3 cm; Wt 159.7 kg
[2017-02-24] MEDS ORDERED: GLIPIZIDE-METFO1 TA5 PO (11:36)
[2017-02-24] MEDS ORDERED: NORVASC10 MG PO (11:41)
[2017-02-24] MEDS ORDERED: NEURONTIN 300300 MG PO (11:42)
[2017-02-24] MEDS ORDERED: ASPIRIN81 MG PO (11:43)
[2017-02-24] MEDS ORDERED: PRAVACHOL40 MG PO (11:43)
[2017-02-24] MEDS ORDERED: ZESTRIL40 MG PO (11:44)
[2017-02-24] MEDS ORDERED: LEXAPRO10 MG PO (11:44)
[2017-02-24 12:05] VITALS: BP 144/74
[2017-02-24 16:00] VITALS: BP 130/72
== END 2017-02-24 19:44 | disposition home or self-care (01) | DRG 65 ==
LOC: D.ER 14:53 → D.M2 18:03
PROVIDERS: Family Medicine; ADMIT Emergency Medicine
DX: I63.511 Cerebral infarction due to unspecified occlusion or stenosis of right middle cerebral artery (principal); G81.94 Hemiplegia, unspecified affecting left nondominant side; Z68.42 Body mass index [BMI] 45.0-49.9, adult; I25.10 Atherosclerotic heart disease of native coronary artery without angina pectoris; Z95.5 Presence of coronary angioplasty implant and graft; E66.9 Obesity, unspecified; E11.65 Type 2 diabetes mellitus with hyperglycemia; R94.31 Abnormal electrocardiogram [ECG] [EKG]; R40.2363 Coma scale, best motor response, obeys commands, at hospital admission; R40.2143 Coma scale, eyes open, spontaneous, at hospital admission; R40.2253 Coma scale, best verbal response, oriented, at hospital admission

== ENCOUNTER 2017-07-10 16:22 | Emergency (ER) | payer MEDICARE ==
[2017-02-24 10:03] VITALS: BMI 49.1
[~2017-07-10 16:22] MED LIST changes: +ASPIRIN81 MG PO; +GLIPIZIDE-METFO1 TA5 PO; +LEXAPRO10 MG PO; +NEURONTIN 300300 MG PO; +NORVASC10 MG PO; +PRAVACHOL40 MG PO; +ZESTRIL40 MG PO
== END 2017-07-10 17:25 | disposition home or self-care (01) ==
LOC: D.ER 16:22
DX: B34.9 Viral infection, unspecified (principal)

== ENCOUNTER → 2018-03-03 07:25 | Outpatient (CLI) | payer MEDICARE ==
[2017-02-24 10:03] VITALS: BMI 49.1
== END | disposition home or self-care (01) ==
LOC: D.US 07:25
DX: R74.8 Abnormal levels of other serum enzymes (principal)

== ENCOUNTER 2018-08-24 07:48 | Day surgery (SDC) | payer MEDICARE ==
[2018-08-23 10:56] LABS: CALC OSMOLALITY 280 mosm/kg (275-300); CALCIUM 8.7 mg/dL (8.5-10.1); CARBON DIOXIDE 27.3 mmol/L (21.0-32.0); CHLORIDE - SERUM 102 mmol/L (98-107); GLUCOSE 127 mg/dL (74-106); POTASSIUM - SERUM 4.5 mmol/L (3.5-5.1); SODIUM 139 mmol/L (136-145); UREA NITROGEN 14 mg/dL (7-18); eGFR NON AFRICAN AMERICAN 84 mL/min (90-120)
[2018-08-23 11:05] LABS: HEMOGLOBIN 15.2 g/dL (13.5-17.5); MCH 29.9 pg (26.0-34.0); MCHC 34.5 g/dL (31.0-37.0); MCV 86.4 fL (80.0-100.0); MEAN PLATELET VOLUME 10.8 fL (7.4-10.4); RBC 5.09 10x6/uL (4.20-6.10); RDW 13.9 % (11.5-14.5); WBC 9.6 10x3/uL (4.8-10.8)
[2018-08-23 13:52] LABS: ALBUMIN 3.8 g/dL (3.4-5.0); BILIRUBIN - DIRECT 0.17 mg/dL (0.00-0.30); BILIRUBIN - INDIRECT 0.38 mg/dL (0.00-1.00); BILIRUBIN - TOTAL 0.55 mg/dL (0.2-1.3); PROTEIN - SERUM 7.5 g/dL (6.4-8.2)
[~2018-08-24] VITALS: Ht 180.3 cm; Wt 182.8 kg
[~2018-08-24 07:48] MED LIST changes: +LYRICA100 MG PO
[2018-08-24 08:20] VITALS: BP 105/61; Ht 180.3 cm; Wt 182.8 kg
[2018-08-24] MEDS ORDERED: HYDROCODON-ACE1 EAC7 PO (12:35)
== END 2018-08-24 15:15 | disposition home or self-care (01) ==
LOC: D.OPS 07:48 → D.PAN 10:30 → D.OPS 10:30
PROVIDERS: Anesthesiology; Emergency Medicine; ATTEND Surgery
DX: K80.10 Calculus of gallbladder with chronic cholecystitis without obstruction (principal); R17 Unspecified jaundice; E11.9 Type 2 diabetes mellitus without complications; I10 Essential (primary) hypertension; I25.10 Atherosclerotic heart disease of native coronary artery without angina pectoris; E66.01 Morbid (severe) obesity due to excess calories; Z68.43 Body mass index [BMI] 50.0-59.9, adult; Z01.812 Encounter for preprocedural laboratory examination

== ENCOUNTER 2019-03-21 08:44 | Outpatient (CLI) | payer MEDICARE ==
[~2019-03-21] VITALS: Ht 180.3 cm; Wt 195.5 kg
--- NOTE | ~2019-03-21 | HEMODYNAMI ---
PATIENT:ERA MILLER MEDICAL RECORD: [id number] : 66 [facility] ADMISSION DATE: 03/21/19 Generatedon:03/21/201911:12 Patient name: ERA MILLER Patient #: [id number] : 1970 Date of study: 03/21/2019 Page: Of Hemodynamic Procedure Report Patient Data Patient Demographics Procedure consent was obtained First Name: ERA Gender: Male Last Name: ANGELA : 1970 Middle Initial: JOSE ENRIQUE Age: 49 year(s) Patient #: [id number] Race: SSN: [id number] Additional ID: [id number] Contact details [address]: [address] [place] [address] State: [place] City: [place] Zip code: [address] Past Medical History Allergies: No known allergies Admission Admission Data Admission Date: 03/21/2019 Admission Time: 8:44 Arrival Date: 03/21/2019 Arrival Time: 0:00 Admit Source: Other Insurance Payor: Private Room #: D.CL05 health insurance [facility] #: [id number] Height (in.): 71 BSA: 2.92 (m2) Height (cm.): 180.34 BMI: 59.97 (kg/m2) Weight (lbs.): 430 Weight (kg.): 195.04 Lab Results Lab Result Date: 03/21/2019 Lab Result Time: 0:00 Biochemistry Name Units Result Min Max BUN mg/dl 17 --(---*)-- 7 18 Creatinine mg/dl 1 --(--*-)-- 0.6 1.3 eGFR ml/min 84 -*(----)-- 90 120 NONAFRICAN CBC Name Units Result Min Max Hematocrit % 39.5 -*(----)-- 42 54 Hemoglobin g/dl 13.1 -*(----)-- 13.5 17.5 Procedure Procedure Types Cath Procedure Diagnostic Procedure [facility] w/Coronaries Sedation Charges Moderate Sedation up to 15 minutes PCI Procedure Coronary Stent Coronary Stent Initial Procedure Description Procedure Date Procedure Date: 03/21/2019 Procedure Start Time: 10:53 Procedure End Time: 11:09 Procedure Staff Name Function Sloan Griffin MD Performing Physician Татьяна Miranda RN Nurse Veena Prabhakar RT Monitor Sarah Brown RT Scrub Procedure Data Cath Procedure Fluoroscopy Diagnostic fluoroscopy Total fluoroscopy Time: 4.3 time: 4.3 min min Diagnostic fluoroscopy Total fluoroscopy dose: dose: 1574 mGy 1574 mGy Contrast Material Contrast Material Type Amount (ml) Isovue 300 95 Entry Location Entry Primary Successful Side Size Upsize Upsize Entry Closure Venegas ccessful Closure Location (Fr) 1 (Fr) 2 (Fr) Remarks Device Remarks Radial Right 6 Fr Mechanical artery Short Compression Estimated blood loss: 10 ml Diagnostic catheters Device Type Used For End Catheter Placement DIAGNOSTIC [place] 110cm 5 Procedure Fr catheter ([id number]) Procedure Complications No complications Procedure Medications Medication Administration Route Dosage 0.9% NaCl I.V. 100 ml/hr Oxygen etCO2 Nasal cannula 2 l/min Lidocaine 2% added to field 20 Heparin Flush Bag added to field 2 bags (1000units/500ml NS) Radial Cocktail added to field 1 syringe (Verapamil 2mg/Nitro 400mcg/Heparin 1500units) Versed I.V. 2 mg Fentanyl I.V. 100 mcg Heparin Bolus I.V. 4000 units Integrilin (Bolus I.V. 11.3 ml 2mg/ml) Integrilin (Bolus wasted 8.7 ml 2mg/ml) Plavix P.O. 600 mg Hemodynamics Rest BSA: 2.92 (m2) HGB: 13.1 (g/dl) O2 Consumption: Estimated: 333.65 (ml/min) O2 Co nsumption indexed: Estimated:114.26 (ml/min/m) Heart Rate: 56 (bpm) Snapshots Pre Cath Intra NCS Post Cath Vital Signs Time Heart Resp SPO2 etCO2 NIBP (mmHg) Rhythm Pain Sedation Rate (ipm) (%) (mmHg) Status Level (bpm) 10:45:52 57 15 98 44.3 143/66(108) SB 0 (11) 10(A) , No pain 10:50:18 55 14 97 44.3 111/51(79) SB 0 (11) 10(A) , No pain 10:54:54 58 15 98 40.6 120/49(92) SB 0 (11) 9(A) , No pain 10:59:31 57 13 98 45.8 120/46(80) SB 0 (11) 9(A) , No pain 11:03:57 58 13 98 47.3 99/53(81) SB 0 (11) 9(A) , No pain 11:08:26 59 14 98 47.3 111/56(81) SB 0 (11) 10(A) , No pain Medications Time Medication Route Dose Verified Delivered Reason Not es Effectiveness by by 10:44:33 0.9% NaCl I.V. 100 Sloan Татьяна used for ml/hr Gaby Miranda inventory control analyst 10:44:39 Oxygen etCO2 2 l/min Sloan Татьяна used for Nasal Gaby Miranda procedure cannula RN 10:44:44 Lidocaine 2% added 20ml Sloan Sloan for local to vial Gaby Griffin MD anesthetic field 10:44:49 Heparin Flush added 2 bags Sloan Sloan used for Bag to Gaby Griffin MD procedure (1000units/500ml field NS) 10:44:54 Radial Cocktail added 1 Sloan Sloan used for (Verapamil to syringe Gaby Griffin MD procedure 2mg/Nitro field 400mcg/Heparin 1500units) 10:51:22 Versed I.V. 2 mg Sloan Татьяна for sedation Gaby Miranda RN 10:51:37 Fentanyl I.V. 100 mcg Sloan Татьяна for sedation Gaby Miranda RN 11:03:24 Heparin Bolus I.V. 4000 Sloan Татьяна for marlen ified units Gaby Miranda anticoagulation with [facility]. ORELLANA [facility] 11:03:39 Integrilin I.V. 11.3 ml Sloan Татьяна for (Bolus 2mg/ml) Gaby Miranda antiplatelet RN therapy 11:06:56 Integrilin wasted 8.7 ml Sloan Татьяна for (Bolus 2mg/ml) Gaby Miranda antiplatelet RN therapy 11:07:14 Plavix P.O. 600 mg Sloan Татьяна for Gaby Miranda antiplatelet RN therapy Procedure Log Time Note 10:20:25 Татьяна Miranda RN sent for patient. Start room use. 10:20:40 Informed consent obtained and on chart 10:25:34 Patient allergic to No known allergies 10:25:39 Arrival Date: 03/21/2019 12:00:00 AM 10:25:46 Insurance Payor : Private health insurance 10:26:05 Admit Source: Other 10:26:13 Patient Height : 71 inches 10::27 Patient Weight : 430 lbs 10::23 Lab Result : Hemoglobin 13.1 g/dl :: Lab Result : eGFR NONAFRICAN 84 ml/min :: Lab Result : BUN 17 mg/dl :: Lab Result : Creatinine 1 mg/dl :: Lab Result : Hematocrit 39.5 % 10::38 Diagnostic Cath Status : Elective 10:32:44 Procedure Status Elective Heart Cath (OP). 10:32:48 Time tracking: Regular hours (M-F 7:00 - 5:00) 10:32:54 Plan of Care:Hemodynamics will remain stable., Cardiac rhythm will remain stable., Comfort level will be maintained., Respiratory function will remain adequate., Patient/ family verbilizes understanding of procedure., Procedure tolerated without complication., Recovers from procedure without complications.. 10:33:22 Patient received from Pre/Post Procedure Room to CCL 1 Alert and oriented. Tansferred to table in Supine position. 10:33:23 Warm blankets applied, and mark hugger turned on for patient comfort. 10:33:24 Correct patient and procedure confirmed by team. 10:33:24 ECG and BP/O2 sat monitors applied to patient. 10:44:09 Baseline sample Acquired. 10:44:09 Vital chart was started 10:44:13 Rhythm: sinus bradycardia 10:44:13 Full Disclosure recording started 10:44:22 H&P Date Dictated: 03/14/2019 Within 30 days and on chart., H&P Addendum completed by physician on day of procedure. (MUST COMPLETE FOR ALL OUTPATIENTS). 10:44:23 Pre-procedure instructions explained to patient. 10:44:23 Pre-op teaching completed and patient verbalized understanding. 10:44:27 Family in waiting room. 10:44:28 Patient NPO since Midnight. 10:44:32 Is the patient allergic to Iodine/contrast media? No. 10:44:33 0.9% NaCl 100 ml/hr I.V. was administered by Татьяна Miranda RN; used for procedure; Verbal order read back and verified. 10:44:33 Is patient on blood thinner?No 10:44:34 Patient diabetic? Yes. 10:44:35 If diabetic: On Metformin? Yes 10:44:39 Oxygen 2 l/min etCO2 Nasal cannula was administered by Татьяна Miranda RN; used for procedure; Verbal order read back and verified. 10:44:44 Lidocaine 2% 20ml vial added to field was administered by Sloan Griffin MD; for local anesthetic; Verbal order read back and verified. 10:44:49 Heparin Flush Bag (1000units/500ml NS) 2 bags added to field was administered by Sloan Griffin MD; used for procedure; Verbal order read back and verified. 10:44:54 Radial Cocktail (Verapamil 2mg/Nitro 400mcg/Heparin 1500units) 1 syringe added to field was administered by Sloan Griffin MD; used for procedure; Verbal order read back and verified. 10:44:55 If on Metformin: Last Dose? 03/19/2019 10:45:00 Previous problem with sedation/anesthesia? No ? 10:45:01 Snore? Yes 10:45:02 Sleep apnea? No 10:45:03 Deviated septum? No 10:45:05 Opens mouth fully? Yes 10:45:05 Sticks out tongue? Yes 10:45:08 Airway obstruction? No ? 10:45:10 Dentures? No ? 10:45:12 Pre procedure: right dorsailis pedis pulse 1+ Palpable, but thready & weak; easily obliterated 10:45:14 Modified Jose Enrique's test Ulnar < 7 seconds 10:45:16 Patient pain scale 0/10 ?. 10:45:20 IV patent on arrival in left hand with 0.9% NaCl at [facility]. 10:45:31 Lab results completed and on chart. 10:45:35 Right Radial & Right Groin area was prepped with chlora-prep and draped in sterile fashion 10:45:37 Alarms reviewed by R. N. 10:45:37 Sharps counted by scrub and verified by R.N. 10:45:41 Use device set Radial Dx or PCI 10:45:42 ACIST Syringe (41998) opened to sterile field. 10:45:44 Bag Decanter (2001S) opened to sterile field. 10:45:45 ACIST Hand Control (43183) opened to sterile field. 10:45:45 ACIST Manifold (81424) opened to sterile field. 10:45:45 Tegaderm 4 x 4 (1626W) opened to sterile field. 10:45:46 Medline Cath Pack ([id number]) opened to sterile field. 10:45:47 MBrace Wrist Support ([id number]) opened to sterile field. 10:45:48 EMERALD Guide Wire (916-747) opened to sterile field. 10:45:48 SHEATH 6FR RAIN ([id number]) opened to sterile field. 10:50:29 --------ALL STOP TIME OUT------ 10:50:30 Final Timeout: patient, procedure, and site verified with staff and physician. All members of the team are in agreement. 10:50:31 Right Radial & Right Groin site verified by team. 10:50:35 Fire Safety Assessment: A--An alcohol-based skin anteseptic being used preoperatively., C--Open oxygen or nitrous oxide is being used., D--An ESU, laser, or fiber-optic light is being used. 10:50:38 Physical assessment completed. ASA score P 2 - A patient with mild systemic disease as per Sloan Griffin MD. 10:50:41 2) 60-89 Mildly reduced kidney function, and other findings (as for stage 1) point to kidney disease. 10:50:44 Maximum allowable contrast dose (3.7 X eGFR X 0.75)233 ml. 10:50:47 Sedation plan: IV Moderate Sedation Medication:Versed, Fentanyl 10:50:55 Zero performed for pressure channel P1 10:51:22 Versed 2 mg I.V. was administered by Татьяна Miranda RN; for sedation; Verbal order read back and verified. 10:51:37 Fentanyl 100 mcg I.V. was administered by Татьяна Miranda RN; for sedation; Verbal order read back and verified. 10:53:02 Procedure started. 10:53:06 Zero performed for pressure channel P1 10:53:28 Local anesthetic to right radial artery with Lidocaine 2% by Sloan Griffin MD.INITIAL ACCESS ONLY 10:54:33 A 6 Fr Short sheath was inserted into the Right Radial artery 10:54:53 A DIAGNOSTIC [place] 110cm 5 Fr catheter ([id number]) was advanced over the wire and used for Procedure. 10:55:59 LV gram done using HOFF 10:56:02 Injector settings: Ml/sec: 5, Volume: 15, 10:57:01 EF : 55 % 10:57:46 Catheter exchanged over wire. 10:58:04 UNABLET TO ENGAGE LCA AND RCA 10:58:21 GUIDE 6FR XB 3.5 catheter ([id number]) opened to sterile field. 10:58:36 6 Fr XB 3.5 guide catheter was inserted over the wire 11:00:29 LCA angiography performed. 11:00:34 Catheter exchanged over wire. 11:01:11 GUIDE 6FR AR 2.0 catheter ([id number]) opened to sterile field. 11:01:21 6 Fr AR2 guide catheter was inserted over the wire 11:02:56 INFLATOR Merit BasixCompak (ZD2009) opened to sterile field. 11:03:24 Heparin Bolus 4000 units I.V. was administered by Татьяна Miranda RN; for anticoagulation; verified with Dr. Griffin Verbal order read back and verified. 11:03:39 Integrilin (Bolus 2mg/ml) 11.3 ml I.V. was administered by Татьяна Miranda RN; for antiplatelet therapy; Verbal order read back and verified. 11:03:56 CHOICE PT Extra Support 182cm wire ([id number]) opened to sterile field. 11:04:02 ACCDominant side:Right 11:04:09 CHOICE ES 182 wire advanced. 11:04:18 Pre PCI Site: [place] dRCA has 90-95% stenosis. 11:04:20 Wire advanced across lesion. 11:05:33 Place stent Inflation Number: 1 A MODESTO RX 3.5 x 12 stent ([id number]) was prepped and advanced across the Dist RCA . The stent was deployed at 15 VICTORIA for 0:10 (min:sec) . 11:05:45 Stent catheter was removed intact over wire. 11:05:46 Wire removed. 11:05:46 Guide catheter removed. 11:06:16 Procedure ended.(Physican Out) 11:06:56 Integrilin (Bolus 2mg/ml) 8.7 ml wasted was administered by Татьяна Miranda RN; for antiplatelet therapy; Verbal order read back and verified. 11:07:14 Plavix 600 mg P.O. was administered by Татьяна Miranda RN; for antiplatelet therapy; Verbal order read back and verified. 11:07:33 TR BAND Large ([id number]) opened to sterile field. 11:08:18 Sheath removed intact; hemostasis achieved with Mechanical Compression to the Right Radial artery. 11:08:22 Fluoroscopy time 04.30 minutes. 11:08:25 Fluoroscopy dose: 1574 mGy 11:08:25 Flurop Dose total: 1574 11:08:31 Dose Area Product 97703 mGy/cm. 11:08:35 Contrast amount:Isovue 300 95ml. 11:08:36 Maximum allowable dose exceeded? No. 11:08:37 Sharps counted by scrub and verified by R.N. 11:08:44 [place] band inflated with 8cc of air. 11:08:56 Post-procedure physical assessment completed. ASA score P 2 - A patient with mild systemic disease as per Sloan Griffin MD. 11:08:59 Post procedure rhythm: unchanged. 11:09:02 Estimated blood loss: 10 ml 11:09:04 Post procedure instruction explained to patient.Patient verbalizes understanding. 11:09:04 Patient needs reinforcement of post procedure teaching. 11:09:19 Procedure type changed to Cath procedure, Diagnostic procedure, LHC, LHC w/Coronaries, Sedation Charges, Moderate Sedation up to 15 minutes, PCI procedure, Coronary Stent, Coronary Stent Initial 11:09:39 Procedure and supply charges have been captured, reviewed, submitted and are correct. 11:09:42 Procedure Complication : No complications 11:09:48 Vital chart was stopped 11:09:48 See physician's report for complete and final results. 11:09:51 Report given to Pre/Post Procedure Room. 11:09:54 Patient transfered to Pre/Post Procedure Room with Bed. 11:09:57 Procedure ended. 11:09:57 Full Disclosure recording stopped 11:10:03 End room use (Document Last) Intervention Summary Intervention Notes Time ActionType Lesion and Equipment Used Action# Pressure Duration Attributes 11:05:33 Place stent Dist RCA MODESTO RX 3.5 x 1 15 00:10 12 stent ([id number]) Device Usage Item Name Manufacture Quantity Catalog Number Hospital Part Current M inimal Lot# / Charge Number Stock Stock Serial# Code ACIST Syringe Acist 1 83867 006733 230650 348031 2 0 (72587) Medical Systems Inc Bag Decanter Microtek 1 2001S 115700 53621 899455 5 (2001S) Medical Inc. ACIST Hand Acist 1 91903 395654 858431 349283 5 Control Medical (41616) Systems Inc ACIST Manifold Acist 1 02838 620850 342892 166868 5 (83287) Medical Systems Inc Tegaderm 4 x 4 3M 1 1626W 183030 048727 435727 5 (1626W) Medline Cath Medline 1 [id number] 059249 78994 131321 5 Pack ([id number]) MBrace Wrist Advanced 1 140-0250-00 271294 95491 685487 5 Support Vascular ([id number]) Dynamics EMERALD Guide Cardinal 1 502-455 461795 619402 490628 5 Wire (502-455) Health SHEATH 6FR Cardinal 1 6479437 346571 6994681 599689 5 RAIN (4798587) Health DIAGNOSTIC Terumo 1 405013 858278 335604 859402 5 [place] 110cm 5 Fr catheter (463109) GUIDE 6FR XB Cardinal 1 [id number] 424824 479252 445977 2 3.5 catheter Health (65681384) GUIDE 6FR AR Medtronic 1 [id number] 190484 73644 976174 1 2.0 catheter (WC4WP84) INFLATOR Merit Merit 1 HJ1784 477797 315045 960534 1 5 HolyTransaction (WE4330) CHOICE PT [place] 1 [id number] 953692 699231 984240 5 Extra Support Scientific 182cm wire ([id number]) MODESTO RX 3.5 x Medtronic 1 [id number] 270500 1976835 166477 5 [id number] 12 stent ([id number]) TR BAND Large Terumo 1 [id number] 866463 247559 290127 4 0 ([id number]) Signature Audit [place] Stage Time Signature Unsigned Intra-Procedure 03/21/2019 Veena Prabhakar 11:12:05 AM RT(R) Intra-Procedure 03/21/2019 Татьяна Miranda 11:12:29 AM RN Intra-Procedure 03/21/2019 Sloan Griffin 11:12:43 AM [place] [address] [place] [address]
[~2019-03-21 08:44] MED LIST changes: +HYDROCODON-ACE1 EAC7 PO
[2019-03-21] MEDS ORDERED: BAYER CHEWABLE81 MG PO (08:56)
[2019-03-21] MEDS ORDERED: LIPITOR10 MG PO (08:57)
[2019-03-21] MEDS ORDERED: BENADRYL25 MG PO (08:57)
[2019-03-21] MEDS ORDERED: BUSPAR10 MG PO (08:58)
[2019-03-21] MEDS ORDERED: NEURONTIN600 MG PO (08:59)
[2019-03-21] MEDS ORDERED: HYDRALAZINE HCL50 MG PO (09:00)
[2019-03-21] MEDS ORDERED: LEVOXYL100 MCG PO (09:01)
[2019-03-21] MEDS ORDERED: LINZESS290 MCG PO (09:01)
[2019-03-21] MEDS ORDERED: TOPROL XL100 MG PO (09:03)
[2019-03-21] MEDS ORDERED: MYCOLOG CREAM15 GM TOPICAL (09:04)
[2019-03-21] MEDS ORDERED: OMEPRAZOLE20 M1 PO (09:04)
[2019-03-21] MEDS ORDERED: ZOLOFT100 MG PO (09:05)
[2019-03-21] MEDS ORDERED: PIOGLITAZONE15 MG PO (09:05)
[2019-03-21] MEDS ORDERED: FLOMAX0.4 MG PO (09:06)
[2019-03-21 09:29] VITALS: BP 121/85; Ht 180.3 cm; Wt 195.5 kg
[2019-03-21 09:36] LABS: BASOPHILS 0.6 % (0-2); HEMATOCRIT 39.5 % (42.0-54.0); HEMOGLOBIN 13.1 g/dL (13.5-17.5); LYMPHOCYTES 22.7 % (15-50); MCH 29.2 pg (26.0-34.0); MCHC 33.2 g/dL (31.0-37.0); MEAN PLATELET VOLUME 10.5 fL (7.4-10.4); MONOCYTES 7.5 % (2-11); NEUTROPHILS 66.2 % (40-80); PLATELET COUNT 206 10x3/uL (130-400); RBC 4.49 10x6/uL (4.20-6.10); RDW 14.1 % (11.5-14.5); WBC 8.8 10x3/uL (4.8-10.8)
[2019-03-21 09:51] LABS: ALT (SGPT) 19 U/L (10-68); CHOL - HDL RATIO 4.3 ratio (2.3-4.9); CHOLESTEROL, TOTAL 145 mg/dL (0-200); HDL CHOLESTEROL 34 mg/dL (32-96); LDL CHOLESTEROL 93 mg/dL (0-100); LDL-HDL RATIO 2.7 ratio (1.5-3.5); TRIGLYCERIDE 92 mg/dL (30-200)
[2019-03-21 10:02] LABS: CALC OSMOLALITY 282 mosm/kg (275-300); CALCIUM 8.2 mg/dL (8.5-10.1); CARBON DIOXIDE 28.1 mmol/L (21.0-32.0); CHLORIDE - SERUM 105 mmol/L (98-107); GLUCOSE 152 mg/dL (74-106); POTASSIUM - SERUM 4.4 mmol/L (3.5-5.1); SODIUM 139 mmol/L (136-145); UREA NITROGEN 17 mg/dL (7-18); eGFR NON AFRICAN AMERICAN 84 mL/min (90-120)
[2019-03-21] MEDS ORDERED: PLAVIX75 MG PO (11:44)
--- NOTE | 2019-03-21 12:02 | NUR ---
PT SLEEPING INTERMITTENTLY, AWAKENS EASILY. DENIES ANY C/O PAIN OR NAUSEA. SINUS JOSE AT 56, BP IS 126/68. O2 SAT 96% ON O2 AT 2LPM VIA NC. TR BAND IS CDI, WRIST IMMOBILIZER IN PLACE. DR HERNANDES HAS ROUNDED ON PT. NO FAMILY AT BEDSIDE, SIDE RAILS ARE UP X2 AND CALL LIGHT IN REACH. BED IS LOCKED AND LOW.
--- NOTE | 2019-03-21 12:20 | NUR ---
PT SLEEPING, RESP WITH EASE ON O2 AT 2LPM VIA NC. VSS, TR BAND IS CDI, FINGERS WARM AND CAP REFILL IS BRISK.
--- NOTE | 2019-03-21 13:00 | NUR ---
PT SITTING UPRIGHT IN BED, ALERT AND DENIES ANY C/O CHEST PAIN. TR BAND IS CDI TO RIGHT WRIST, FINGERS WARM AND CAP REFILL IS BRISK. SNADWICH AND PO FLUIDS SERVED. NSR, RATE 65, BP IS 124/52. RESP WTIH EASE ON ROOM AIR.
--- NOTE | 2019-03-21 14:15 | NUR ---
PT HAS VOIDED 425 CVC CLEAR YELLOW URINE USING URINAL. PT HAS RECEIVED NORCO 10MG PO X1 FOR C/O PAIN TO RIGHT WRIST AT TR BAND. PT STATES CANNOT TOLERATE ANYTHING CONSTRICTIVE DUE TO FIBROMYALGIA. FINGERS WARM, CAP REFILL IS BRISK, RADIAL PULSE PALPABLE.
--- NOTE | 2019-03-21 14:43 | NUR ---
1420 2 CC OF AIR WEANED FROM TR BAND WITH NO BLEEDING NOTED. FINGERS WARM AND CAP REFILL IS BRISK. 1442 3 CC OF AIR WEANED FROM TR BAND WITH NO BLEEDING NOTED.
--- NOTE | 2019-03-21 14:58 | NUR ---
ALL REMAINING AIR WEANED FROM TR BAND WITH NO BLEEDING NOTED. FINGERS WARM, RADIAL PULSE PALPABLE. VSS, FRIEND AT BEDSIDE.
--- NOTE | 2019-03-21 15:24 | NUR ---
IV HAS BEEN DC'D WITH CATH INTACT. TR BAND REMOVED AND 2X2, TEGADERM PLACED TO SITE. RADIAL PULSE PALPABLE, FINGERS WARM AND CAP REFILL IS BRISK. PT STATES PAIN TO WRIST RELIEVED WITH NORCO AND REMOVAL OF BAND. DC INSTRUCTIONS REVIEWED WITH PT WHO VERBALIZES UNDERSTANDING. PLAVIX PRESCRIPTION AND MED COUNSELOR SHEET REVIEWED WITH PT WHO VERBALIZES UNDERSTANDING TO START THIS MEDICATION TOMORROW. PT'S FAMILY HAS LEFT ROOM AND TAKEN PT'S CLOTHES, AWAITING HER TO RETURN SO PT CAN DRESS FOR DISCHARGE.
--- NOTE | 2019-03-21 15:42 | NUR ---
PT HAS DRESSED FOR DC TO HOME. DRESSING REMAINS CDI TO RIGHT WRIST, NO BLEEDING OR HEMATOMA NOTED. RADIAL PULSE PALPABLE. FINGERS WARM AND CAP REFILL IS BRISK. PT DENIES ANY NV DEFICIT TO HAND. WRIST IMMOBILIZER IN PLACE. PT IS ALERT AND DENIES ANY C. PT ESCORTED TO PRIVATE AUTO VIA WC BY NURSE WITH FRIEND DRIVING HIM HOME. PT HAS ALL PERSONAL BELONGINGS AND DC INSTRUCTIONS AT TIME OF DISCHARGE.
--- NOTE | 2019-03-30 13:30 | OP ---
PATIENT NAME: ERA MILLER MEDICAL RECORD: [id number] :66 LOCATION:[facility] ADMISSION DATE: SURGEON: MIHIR HERNANDES MD DATE OF OPERATION: 03/21/2019 PROCEDURES: 1. PTCA stent RCA. 2. Left heart catheterization. 3. Selective coronary angiography. 4. Left ventriculogram. INDICATION: Unstable angina and coronary artery disease. PROCEDURE IN DETAIL: After informed consent was obtained and after a detailed description of risks, benefits as well as alternative therapies, the patient elected to proceed with angiogram and angioplasty. The right radial area was prepped and draped in normal sterile fashion. Right radial artery was cannulated via modified Seldinger technique with placement of 6-Uzbek sheath. All catheters exchanged through this sheath. FINDINGS: Left ventriculogram was performed in standard 30-degree HOFF view, reveals good cardiac wall motion, ejection fraction is 60%. SELECTIVE CORONARY ANGIOGRAPHY: 1. Left main is with no significant angiographic disease. 2. Left anterior descending has moderate irregularities, but no flow-limiting stenosis. 3. The left circumflex has moderate irregularities, but no flow-limiting stenosis. 4. Right coronary artery has 90% to 95% stenosis in the distal vessel. PTCA STENT OF THE RCA: The stent used was a 3.5 x 12 mm Sami. Result was 0% residual stenosis. OVERALL IMPRESSION: Successful percutaneous transluminal coronary angioplasty stent of the right coronary artery going from 90% to 95% initial stenosis to 0% residual. TRANSINT:[id number] Voice Confirmation ID: [id number] DOCUMENT ID: [id number] MIHIR HERNANDES MD at 1330 CC: [id number] DICTATION DATE: 03/21/19 1111 METAL TANK ERECTOR: 03/21/19 1256 DEP CLI 03/21/19 [place] [address]
== END 2019-03-21 15:42 | disposition home or self-care (01) ==
LOC: D.CATH 08:44 → D.CLR 09:12 → D.CATH 10:30
PROVIDERS: ATTEND Internal Medicine Interventional Cardiology
DX: I25.110 Atherosclerotic heart disease of native coronary artery with unstable angina pectoris (principal); R06.02 Shortness of breath; R06.09 Other forms of dyspnea; R53.83 Other fatigue; E66.01 Morbid (severe) obesity due to excess calories
CPT/HCPCS: 93458; C9600

== ENCOUNTER → 2019-07-03 09:12 | Outpatient (CLI) | payer MEDICARE ==
[2019-03-21 09:29] VITALS: BMI 60.1
[~2019-07-03 09:12] MED LIST changes: +BAYER CHEWABLE81 MG PO; +BENADRYL25 MG PO; +BUSPAR10 MG PO; +FLOMAX0.4 MG PO; +HYDRALAZINE HCL50 MG PO; +LEVOXYL100 MCG PO; +LINZESS290 MCG PO; +LIPITOR10 MG PO; +MYCOLOG CREAM15 GM TOPICAL; +NEURONTIN600 MG PO; +OMEPRAZOLE20 M1 PO; +PIOGLITAZONE15 MG PO; +TOPROL XL100 MG PO; +ZOLOFT100 MG PO
== END | disposition home or self-care (01) ==
LOC: D.ECHO 09:12
PROVIDERS: ATTEND Nurse Practitioner Family
DX: I51.7 Cardiomegaly (principal)

== ENCOUNTER → 2019-07-20 10:02 | Outpatient (CLI) | payer MEDICARE, MEDICAID ==
[2019-03-21 09:29] VITALS: BMI 60.1
--- NOTE | ~2019-07-20 | EC ---
PATIENT:ERA MILLER DATE OF SERVICE: 07/20/19 SEX: M MEDICAL RECORD: [id number] DATE OF : 66 [facility] AGE OF PATIENT: 49 ADMISSION DATE: 07/20/19 REFERRING PHYSICIAN: INTERPRETING PHYSICIAN: MIHIR GRIFFIN MD ECHOCARDIOGRAM REPORT ECHO CHARGES 4 ECHO COMPLETE Date: 07/20/19 CLINICAL DIAGNOSIS: CARDIOMEGALY ECHOCARDIOGRAPHIC MEASUREMENTS (adult normal given) AC root (d.<3.7cm) 3.7 cm LV Septum d (<1.2 cm> 1.4 cm Valve Excursion 2.1 cm LV Septum (systole) 2.2 cm Left Atria (s.<4.0cm> 4.7 cm LVPW d(<1.2cm) 1.6 cm RV (d.<2.3cm) 3.7 cm LVPW (sytole) 2.5 cm LV diastole(<5.6CM) 5.7 cm MV E-F(>70mm/sec) cm LV systole 2.8 cm LVOT Diameter 2.5 cm MV exc.(>10mm) cm Est.ejection fraction (50-75%) % DOPPLER: LVIT cm/sec A 54.0 cm/sec E 120 cm/sec LA cm/sec RVSP 21.0 mmHg LVOT 106 cm/sec AOP1/2T m/s Asc. 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 Griffin TAPE# PACS Pericardial Effusion N DATE OF SERVICE: ECHOCARDIOGRAM FINDINGS: 1. Left ventricular chamber size is mildly dilated. Left ventricular systolic function is preserved at 55%. 2. Left atrium is dilated at 4.7 cm. Right atrium and right ventricular chamber sizes are as well [id number] dilated. 3. Valvular structures have normal structure and motion. ECHOCARDIOGRAM REPORT [id number] [place] 4. Doppler interrogation reveals trace tricuspid regurgitation, no other valvular insufficiency or stenosis. Pulmonary systolic pressure estimated at 21 mmHg. 5. No evidence of pericardial effusion or left ventricular thrombus. 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
== END | disposition home or self-care (01) ==
LOC: D.ECHO 10:02
PROVIDERS: ATTEND Nurse Practitioner Family
DX: I51.7 Cardiomegaly (principal)